=== PATIENT | male | born 1935 | race Caucasian/White ===

== ENCOUNTER 2018-08-25 14:04 | Inpatient (IN) ==
--- NOTE | 2018-08-25 17:09 | ED ---
HPI General Chief complaint: Medical Clearance Stated complaint: Left Hand Complaint Time Seen by Provider: 08/25/18 16:40 History of Present Illness HPI narrative: This is a 83-year-old male who presents today to be seen by the hand surgeon personnel adviser. Patient was seen on 08/20/18 after being bitten by a cat. He was started on antibiotics. He is been seen 3 times since then. He was told to follow-up with the hand surgeon however has been unable to get into be seen. Apparently his primary care physician called Dr. manzano who is on hand call. He instructed him to be sent to the ER to be seen by Dr. manzano. The patient denies any fevers, chills. He reports pain and redness and swelling to the distal left index finger. He has been taking his Augmentin however reports that it is still draining purulent fluid. There are no other complaints at the time of my examination. Related Data Home Medications Medication Instructions Recorded Confirmed atorvastatin 20 mg PO HS 08/20/18 08/25/18 dutasteride [Avodart] 0.5 mg PO DAILY 08/20/18 08/25/18 hydroxychloroquine 200 mg PO DAILY 08/20/18 08/25/18 methylprednisolone 4 mg PO DAILY 08/20/18 08/25/18 Previous Rx's Medication Instructions Recorded amoxicillin-pot clavulanate 1 tab PO BID 10 Days #20 tab 08/20/18 [Augmentin] Allergies Allergy/AdvReac Type Severity Reaction Status Date / Time No Known Allergies Allergy Verified 08/23/18 10:28 Review of Systems ROS: all other systems reviewed are negative Constitutional Denies chills and Denies fever(s) Cardiovascular Reports system reviewed and no additional complaints, except as docu Respiratory Reports system reviewed and no additional complaints, except as docu Gastrointestinal Reports system reviewed and no additional complaints, except as docu Genitourinary Reports system reviewed and no additional complaints, except as docu Musculoskeletal Reports limited range of motion (Of left index finger secondary to pain and swelling.) Integumentary/Breasts Reports erythema (Left distal index finger) and Reports skin swelling (Left index finger) Neurologic Reports system reviewed and no additional complaints, except as docu [facility] Social History Social History Substance History: No History of Abuse Second Hand Smoke Exposure: No Smoking Status: Never smoker Tobacco Type: Cigarettes How Often Do You Have a Drink Containing Alcohol: Never Recent Travel in [place] within the Last 8 Weeks: No Recent Out of Country Travel within the Last 8 Weeks: No Immunization History Tetanus Immunization: Unsure Tetanus Immunization Year if Known: 2011 Exam Narrative Exam Narrative: GENERAL: Well-nourished, well-developed patient, in no acute respiratory distress. SKIN: Focused skin assessment warm/dry. HEAD: Normocephali/atraumatic c. EYES: No scleral icterus. No injection or drainage. NECK: Supple, trachea midline. No JVD or lymphadenopathy. CARDIOVASCULAR: Regular rate and rhythm without murmurs, gallops, or rubs. MUSCULOSKELETAL: On examination the patient's left index finger, there is significant swelling to the left finger. There is circumferential redness. There is drainage noted at the dorsum of the finger just before the nail. There is limited range secondary to the swelling. Patient reports there has been decreased redness and swelling over the proximal finger since discharge. NEUROLOGICAL: Awake and alert. Cranial nerves II through XII intact. Motor and sensory grossly within normal limits. Five out of 5 muscle strength in all muscle groups. Normal speech. Course Initial Documented Vital Signs Temperature 98.1 F 08/25/18 14:10 Pulse Rate 91 H 08/25/18 14:10 Respiratory Rate 20 08/25/18 14:10 Blood Pressure 174/72 H 08/25/18 14:10 Pulse Oximetry 98 08/25/18 14:10 Last Documented Vital Signs Temperature 98.1 F 08/25/18 14:10 Pulse Rate 81 08/25/18 16:47 Respiratory Rate 14 08/25/18 16:47 Blood Pressure 168/76 H 08/25/18 16:47 Pulse Oximetry 95 08/25/18 16:47 Medical Decision Making [facility] Narrative Medical decision making narrative: 83-year-old male status post cat bite on , presents here with redness and drainage from his left index finger. The patient's been on Augmentin since the cat bite. He is been seen 3 times since his initial visit. His primary care physician spoke with the hand surgeon on-call who recommended he come here today to be evaluated. Dr. manzano has evaluated the patient will be taken him to the emergency department to wash out his DIP joint. Patient was started on Unasyn. He is n.p.o. [facility] Case was discussed with Dr. Sean Renteria who is been gracious enough to come and see the patient and written admission orders. Medical Screen Exam Complete: Yes Emergency Medical Condition: Yes Differential Diagnosis Differential Diagnosis: Tenosynovitis versus cellulitis versus intra-articular infection Lab Data Result diagrams: 08/25/18 17:15 08/25/18 17:15 Lab Results 08/25/18 08/25/18 Range/Units 17:15 17:15 WBC 5.3 (4.0-11.0) th/mm3 RBC 4.13 L (4.50-5.90) mil/mm3 Hgb 13.1 (13.0-17.0) gm/dL Hct 38.4 L (39.0-51.0) % MCV 92.9 (80.0-100.0) fL MCH 31.8 (27.0-34.0) pg MCHC 34.2 (32.0-36.0) % RDW 13.3 (11.6-17.2) % Plt Count 200 (150-450) th/mm3 MPV 7.3 (7.0-11.0) fL Prelim Diff (Auto) [employer]st Neut % (Auto) 71.7 H (16.0-70.0) % Lymph % (Auto) 21.2 (9.0-44.0) % Maury % (Auto) 5.2 (0.0-8.0) % Eos % (Auto) 1.9 (0.0-4.0) % Baso % (Auto) 0.0 (0.0-2.0) % Neut # (Auto) 3.8 (1.8-7.7) th/mm3 Lymph # (Auto) 1.1 (1.0-4.8) th/mm3 Maury # (Auto) 0.3 (0.0-0.9) th/mm3 Eos # (Auto) 0.1 (0.0-0.4) th/mm3 Baso # (Auto) 0.0 (0.0-0.2) th/mm3 WBC Differential . Differential Comment Auto diff final Sodium 140 (136-145) meq/L Potassium 4.4 (3.5-5.1) meq/L Chloride 110 H (98-107) meq/L Carbon Dioxide 21.5 (21.0-32.0) meq/L Anion Gap 9 (5-15) meq/L BUN 23 H (7-18) mg/dL Creatinine 0.75 (0.60-1.30) mg/dL Estimated GFR Greater than 89 (>89) mL/min Random Glucose 100 (74-106) mg/dL Calcium 8.9 (8.5-10.1) mg/dL Discharge Plan Discharge Disposition Patient Disposition: ED Admit(ED Internal Use Only) Discharge Order Discharge Orders: ED Use Only Admit Order (Routine); Ordered 08/25/18 Ordered By: Harpreet Salgado Discharge Details Diagnosis: Infected puncture wound of left index finger Physicians Team ED Provider: Harpreet Salgado Primary Care Provider: Bill Higginbotham Attending Provider: Sean Renteria Discharge Interventions Interventions: Vital Signs Last Done: 08/25/18 16:47 Status ED Status: Admitted Patient
[2018-08-25 17:23] LABS: Eos # (Auto) 0.1 th/mm3 (0.0-0.4); Eos % (Auto) 1.9 % (0.0-4.0); Hematocrit 38.4 % (39.0-51.0); Hemoglobin 13.1 gm/dL (13.0-17.0); Lymph # (Auto) 1.1 th/mm3 (1.0-4.8); Lymph % (Auto) 21.2 % (9.0-44.0); Mean Corpuscular HGB Conc 34.2 % (32.0-36.0); Mean Corpuscular Hemoglobin 31.8 pg (27.0-34.0); Mean Corpuscular Volume 92.9 fL (80.0-100.0); Mean Platelet Volume 7.3 fL (7.0-11.0); Mono # (Auto) 0.3 th/mm3 (0.0-0.9); Mono % (Auto) 5.2 % (0.0-8.0); Neut # (Auto) 3.8 th/mm3 (1.8-7.7); Neut % (Auto) 71.7 % (16.0-70.0); Platelet Count 200 th/mm3 (150-450); Red Blood Count 4.13 mil/mm3 (4.50-5.90); Red Cell Distribution Width 13.3 % (11.6-17.2); White Blood Count 5.3 th/mm3 (4.0-11.0)
[2018-08-25] MEDS ORDERED: Acetaminophen 325 MG Tablet PO PRN (17:28)
[2018-08-25] MEDS ORDERED: HYDROmorphone PF Inj 0.5 MG/0.5 ML Syringe IV.PUSH PRN (17:34)
[2018-08-25 17:41] LABS: Anion Gap 9 meq/L (5-15); Blood Urea Nitrogen 23 mg/dL (7-18); Calcium 8.9 mg/dL (8.5-10.1); Carbon Dioxide 21.5 meq/L (21.0-32.0); Chloride 110 meq/L (98-107); Glomerular Filtration Rate Greater Than 89 mL/min (>89); Glucose,Random 100 mg/dL (74-106); Potassium 4.4 meq/L (3.5-5.1); Sodium 140 meq/L (136-145)
[2018-08-25] MEDS: KCL 20 mEq/NACL 0.45% Inj 1,000 ML IV.CONT SCH (18:28)
[2018-08-25] MEDS: Ampicillin/Sulbactam Inj 3 GM in Sodium Chloride 0.9% Inj 100 ML IV.SIG SCH (18:28)
--- NOTE | 2018-08-25 18:31 | MB ---
cc: Micheal Devlin MD DATE: 08/25/2018 REASON FOR CONSULTATION: Left index finger infection. HISTORY OF PRESENT ILLNESS: The patient is an 83-year-old right-hand dominant male, presenting to the ED with complaints of cat bite to the left index finger which happened on 08/20/2018. The patient was seen in the ER multiple times and was started on p.o. antibiotics. He has been compliant with antibiotics. The patient is presenting with worsening symptoms of pain, swelling, redness involving the left index finger. He also complains of associated deformity of the index finger. The patient also complains of drainage from the region. He denies any fever or chills. PAST MEDICAL AND SURGICAL HISTORY: Reviewed. PHYSICAL EXAMINATION: The patient is alert, oriented x3. Examination of the left index finger reveals a flexion deformity at the distal interphalangeal joint with 2 bite wounds, one over the dorsal aspect of the distal interphalangeal joint and on the volar pulp region. There is surrounding swelling, erythema, and drainage. There is drooping of the distal interphalangeal joint about 30 degrees. Tenderness noted over the region. He has intact distal circulation. He has intact distal sensation. There appears to be a fluctuant mass just underneath the eponychial skin fold as well. Terminal degrees of flexion of the index finger DIP joint is limited and painful. He has a flexion deformity of about 30 degrees, and no active extension at the DIP joint beyond that. LABORATORY DATA: Laboratory work was reviewed. He has a white count of 5.3 and neutrophil shift of 71%. X-rays of the left index finger shows soft tissue swelling. Small radiopaque foreign body noted along the volar surface of the distal phalanx. No evidence of fracture noted. ASSESSMENT: This is an 83-year-old male with cat bite to the left index finger distal interphalangeal joint region with septic arthritis. PLAN: Will be to take the patient emergently for incision and drainage, arthrotomy, and wash. The patient will be admitted for IV antibiotics. The patient has been explained the risks and benefits of the procedure. He has been consented for the same. Location of the foreign body is opposite to the bite wound in the pulp. appears like a metal sliver, unlikely broken tooth. MD Tiffany Michele , 05:36 PM , 05:44 PM [facility]ENTER[facility]
--- NOTE | 2018-08-25 18:40 | XR ---
EXAM DATE: 08/25/2018 6:26 PM EST AGE/SEX: 83 years / Male INDICATIONS: Infection in second digit left hand. Cough. CLINICAL DATA: This is the patient's initial encounter. Patient reports that signs and symptoms have been present for 2 weeks and indicates a pain score of 4/10. MEDICAL/SURGICAL HISTORY: None. None. COMPARISON: No prior exams available for comparison. FINDINGS: A single AP view of the chest demonstrates the lungs to be symmetrically aerated without evidence of mass, infiltrate or effusion. Minimal basilar atelectasis. The cardiomediastinal contours are unremar kable. Osseous structures are intact. CONCLUSION: Minimal basilar atelectasis. No infiltrate or effusion. Electronically signed by: Grady Goldsmith MD Board Certified Radiologist 08/25/2018 6:39 PM EST
--- NOTE | 2018-08-25 18:41 | XR ---
EXAM DATE: 08/25/2018 6:28 PM EST AGE/SEX: 83 years / Male INDICATIONS: Infection left hand second digit. Complains of pain and swelling. CLINICAL DATA: This is the patient's subsequent encounter. Patient reports that signs and symptoms h ave been present for 1 week and indicates a pain score of 5/10. MEDICAL/SURGICAL HISTORY: None. None. COMPARISON: [facility], FINGER LEFT 2ND DIGIT MIN 2V, 08/20/2018. . FINDINGS: There is soft tissue swelling of the distal second finger. A linear radiopaque foreign body or calcif ication is seen within the soft tissues on the volar aspect of the distal phalanx. No bony destructiv e change. No acute fracture. CONCLUSION: Small linear radiopaque foreign body or calcification the soft tissues adjacent to the distal phalanx measuring about 3 mm in diameter. There is soft tissue swelling of the index finger. No bony destruc tive change. Electronically signed by: Grady Goldsmith MD Board Certified Radiologist 08/25/2018 6:40 PM EST
[2018-08-25] MEDS ORDERED: Neomycin/Polymyxin G.U. Irrigant 1 ML Ampul ONE (21:00)
[2018-08-25] MEDS ORDERED: Metoprolol Tartrate 25 MG Tablet PO SCH (21:46)
[2018-08-25] MEDS ORDERED: Chlorhexidine Gluconate 2% 1 Pack (2 Cloths) TOPICAL ONE (21:46)
[2018-08-25] MEDS ORDERED: Sodium Chlor 0.9% Inj 500 ML IV.SIG SCH (22:00)
[2018-08-25] MEDS ORDERED: ceFAZolin 2 GM Premix Inj 2 GM/50 ML PIGGYBACK IV.SIG ONE (22:24)
[2018-08-25] MEDS ORDERED: Neomycin/Polymyxin G.U. Irrigant 1 ML Ampul IRRIGATION ONE (22:25)
[2018-08-25] MEDS ORDERED: Bupivacaine PF 0.5% Inj 10 ML Vial ONE (22:43)
[2018-08-25] MEDS ORDERED: Lidocaine PF 2% Inj 10 ML Ampul ONE (22:43)
--- NOTE | 2018-08-25 23:06 | P.OP ---
- Preoperative Diagnosis (1) Cat bite of finger Comment: left index finger (2) Septic arthritis of interphalangeal joint of finger of left hand Comment: distal interphalangeal joint left index finger - Postoperative Diagnosis (1) Cat bite of finger Comment: left index finger (2) Septic arthritis of interphalangeal joint of finger of left hand Comment: distal interphalangeal joint left index finger Date of procedure: 08/25/18 Procedure: incision and drainage left index finger arthrotomy, wash, debridement distal interphalangeal joint left index finger Anesthesia: other (general, LMA) Surgeon: Micheal Devlin MD Estimated blood loss (mL): 2 Tourniquet time (min): 29 Pathology: other (swab for c/s 1. subcutaneous 2. DIP joint,. synvovial tissue for pathology)
[2018-08-25] MEDS ORDERED: *HYDROmorphone PF Inj 1 MG/ML Ampul PERIprocedural Use ONLY ONE (23:07)
[2018-08-25] MEDS ORDERED: fentaNYL Citrate Inj 100 MCG/2 ML Ampul ONE (23:12)
[2018-08-26] MEDS: Ampicillin/Sulbactam Inj 3 GM in Sodium Chloride 0.9% Inj 100 ML IV.SIG SCH ×5 (00:15→23:36)
--- NOTE | 2018-08-26 00:27 | MP ---
cc: Micheal Devlin MD DATE OF OPERATION: 08/25/2018 PREOPERATIVE DIAGNOSES: Cat bite with infection, left index finger, and septic arthritis, distal interphalangeal joint, left index finger. POSTOPERATIVE DIAGNOSES: Cat bite with infection, left index finger, and septic arthritis, distal interphalangeal joint, left index finger. PROCEDURE PERFORMED: Incision and drainage, left index finger abscess, and arthrotomy, wash, debridement, distal interphalangeal joint, left index finger. SURGEON: Micheal Devlin MD ANESTHESIA: General. ESTIMATED BLOOD LOSS: 2 mL TOURNIQUET TIME: 29 minutes at 250 mmHg. SPECIMEN: Swabs were sent for culture and sensitivity from the subcutaneous region and distal interphalangeal joint region, and synovial tissue was sent for pathology. DISPOSITION: To PACU stable. INDICATIONS: The patient is an 83-year-old male who presented with complaint of cat bite to the left index finger about 4-5 days ago. The patient had multiple ER visits, and he presented today with worsening symptoms involving the left index finger. On examination, he had drooping at the DIP joint with purulent drainage from the dorsal aspect of the DIP joint. Another puncture wound was noted in the pulp. The patient had no active extension of the DIP joint. He had tenderness over the region. X-rays showed a foreign body at a different location in the polyp, likely a metal splinter. The patient was consented for incision and drainage and arthrotomy of distal interphalangeal joint and left index finger repair. The patient was explained the risks and benefits of the procedure. PROCEDURE IN DETAIL: The patient was brought to the operating room, and under general anesthesia, the left upper extremity was sterilely prepped and draped. Limb was elevated and tourniquet was inflated to 250 mmHg. Incision site was marked in an inverted Y fashion over the dorsal aspect of the DIP joint. The incision was made over the proposed incision site. Skin flaps are elevated. There was evidence of necrotic tissue over the dorsal aspect of the DIP joint and underneath the eponychial skinfold. On further exploration, there was almost a loss of about 75% of the extensor tendon along the radial aspect, but 25% of the tendon was intact along the ulnar aspect. The joint was exposed with purulence in the region. There was also loss of cartilage from the surface of the head of the middle phalanx and base of the distal phalanx. Specimen was sent from the subcutaneous region and from the DIP joint for culture and sensitivity. Excisional debridement of the infected synovium was carried out, and specimen sent for pathology. The wound along the pulp was explored, which was on the radial aspect. This was connected to the distal interphalangeal joint, and there was also evidence of involvement of the flexor tendon sheath in that region which was debrided and drained. Thorough wash was given using normal saline mixed with hydrogen peroxide and then normal saline mixed with irrigant. About 1 L of solution was used. Packing of the DIP joint and the pulp space was carried out with 1/4-inch iodoform packing material. Tourniquet was deflated at 29 minutes. The patient had good distal circulation after release of tourniquet. Skin flaps were then approximated loosely using 5-0 nylon in horizontal mattress interrupted fashion. Bulky hand dressing was applied. About 3 mL of local anesthesia was given as a digital block. Bulky hand dressing and Sof-Rol and José was applied. The patient had good distal circulation at the end of the procedure. He was recovered and sent to recovery room in stable condition. The plan will be to continue with IV antibiotics and followup cultures. The patient will need long-term IV antibiotics because of the septic arthritis. He would benefit from an infectious disease consult. Micheal Devlin MD SE/nidia , 11:11 PM , 11:20 PM
[2018-08-26 05:09] LABS: Anion Gap 8 meq/L (5-15); Baso % (Auto) 0.2 % (0.0-2.0); Blood Urea Nitrogen 17 mg/dL (7-18); Calcium 8.5 mg/dL (8.5-10.1); Carbon Dioxide 24.2 meq/L (21.0-32.0); Chloride 107 meq/L (98-107); Eos % (Auto) 0.2 % (0.0-4.0); Glomerular Filtration Rate Greater Than 89 mL/min (>89); Glucose,Random 130 mg/dL (74-106); Hematocrit 38.7 % (39.0-51.0); Hemoglobin 13.3 gm/dL (13.0-17.0); Lymph # (Auto) 0.6 th/mm3 (1.0-4.8); Mean Corpuscular HGB Conc 34.5 % (32.0-36.0); Mean Corpuscular Hemoglobin 31.5 pg (27.0-34.0); Mean Corpuscular Volume 91.4 fL (80.0-100.0); Mean Platelet Volume 7.7 fL (7.0-11.0); Mono # (Auto) 0.1 th/mm3 (0.0-0.9); Mono % (Auto) 2.1 % (0.0-8.0); Neut # (Auto) 4.6 th/mm3 (1.8-7.7); Neut % (Auto) 85.5 % (16.0-70.0); Platelet Count 203 th/mm3 (150-450); Red Blood Count 4.23 mil/mm3 (4.50-5.90); Red Cell Distribution Width 12.9 % (11.6-17.2); Sodium 139 meq/L (136-145); White Blood Count 5.4 th/mm3 (4.0-11.0)
[2018-08-26] MEDS: KCL 20 mEq/NACL 0.45% Inj 1,000 ML IV.CONT SCH ×2 (06:43→19:15)
[2018-08-26] MEDS: Finasteride 5 MG Tablet PO SCH (09:29)
[2018-08-26] MEDS: Hydroxychloroquine 200 MG Tablet PO SCH (09:29)
--- NOTE | 2018-08-26 15:14 | P.HPIM ---
History of Present Illness Primary Care Physician: Bill Higginbotham History of Present Illness: This is a 83-year-old male who presents today to be seen by the hand surgeon director of industrial relations. Patient was seen on 08/20/18 after being bitten by a cat. He was started on antibiotics. He is been seen 3 times since then. He was told to follow-up with the hand surgeon however has been unable to get into be seen. Apparently his primary care physician called Dr. devlin who is on hand call. He instructed him to be sent to the ER to be seen by Dr. devlin. The patient denies any fevers, chills. He reports pain and redness and swelling to the distal left index finger. He has been taking his Augmentin however reports that it is still draining purulent fluid. Pt examined in the ER together with Dr. Devlin (08/25/18). Pt taken to the OR by Claus (08/25/18) for emergent incision and drainage left index finger arthrotomy, wash, debridement distal interphalangeal joint left index finger. Pt dx with septic arthritis of the DIP joint of left 2nd digit. Cultures sent to lab. PMH: - hyperlipidemia - BPH - RA - paroxysmal SVT - malignant melanoma, RLE PSH: - right ankle arthroscopy - cataract surgery - cholecystectomy FHX: noncontribuory SHX: - - current smoker, no etoh, no illicit drugs All: NKDA Diagnosis (1) Infected puncture wound of left index finger: (2) Cat bite of finger: (3) Septic arthritis of interphalangeal joint of finger of left hand: Inpatient Certification Inpatient Certification: I certify that the inpatient services were ordered in accordance with Medicare regulations governing the order. This includes certification that hospital inpatient services are reasonable and necessary and in the case of services not specified as inpatient-only under 42 CFR 419.22(n), that they are appropriately provided as inpatient services in accordance to with the 2-midnight benchmark under 43 CFR 412.3(e) Estimated Total Length of Stay (Days): 3 Plans for Post Hospital Care: Not yet determined Medications and Allergies Allergies Allergy/AdvReac Type Severity Reaction Status Date / Time No Known Allergies Allergy Verified 08/23/18 10:28 Home Medications Medication Instructions Recorded Confirmed Type atorvastatin 20 mg PO HS 08/20/18 08/25/18 History dutasteride [Avodart] 0.5 mg PO DAILY 08/20/18 08/25/18 History hydroxychloroquine 200 mg PO DAILY 08/20/18 08/25/18 History methylprednisolone 4 mg PO DAILY 08/20/18 08/25/18 History Active Medications: Active Medications Acetaminophen (Tylenol) 650 mg PO Q4H PRN PRN Reason: Temp > 100.4 Hydrocodone Bitart/Acetaminophen ([place] 5/325) 1 tab PO Q4H PRN PRN Reason: PAIN SCALE 1 TO 10 Atorvastatin Calcium (Lipitor) 20 mg PO HS [facility] Last Admin: 08/25/18 21:47 Dose: Not Given Finasteride (Proscar) 5 mg PO DAILY [facility] Last Admin: 08/26/18 09:29 Dose: 5 mg Hydromorphone HCl (Dilaudid Pf Inj) 0.5 mg IV.PUSH Q4H PRN PRN Reason: BREAKTHROUGH PAIN Hydroxychloroquine Sulfate (Plaquenil) 200 mg PO DAILY [facility] Last Admin: 08/26/18 09:29 Dose: Not Given Ampicillin Sodium/Sulbactam (Sodium 3 gm/ Sodium Chloride) 100 mls @ 200 mls/ hr IV.SIG Q6H [facility] Last Admin: 08/26/18 13:58 Dose: 100 mls/hr Potassium Chloride/Sodium Chloride (Potassium Chlor 20 Meq/Nacl 0.45% Inj) 1, 000 mls @ 84 mls/hr IV.CONT .[id number] [facility] Last Admin: 08/26/18 06:43 Dose: 84 mls/hr Lactated Ringer's (Lr 1000 Ml Inj) 1,000 mls @ 30 mls/hr IV.SIG .Q24H [facility] Stop: 08/26/18 21:59 Metoprolol Tartrate (Lopressor) 25 mg PO [employer] MANAGER [facility] Stop: 08/26/18 21:45 Miscellaneous Information ([facility] [place] [facility] Information) 1 each OTHER UNSCH PRN PRN Reason: SEE LABEL COMMENTS Stop: 08/26/18 22:59 Ondansetron HCl (Zofran Inj) 4 mg IV.PUSH Q6H PRN PRN Reason: NAUSEA OR VOMITING Sodium Chloride (Ns Flush) 2 ml IV.FLUSH BID [facility] Last Admin: 08/26/18 09:27 Dose: Not Given Sodium Chloride (Ns Flush) 2 ml IV.FLUSH PRN PRN PRN Reason: FLUSH AFTER USING IV ACCESS Physical Exam Vital signs: Last Vital Signs Temp 97.6 F 08/26/18 12:00 Pulse 64 08/26/18 12:00 Resp 18 08/26/18 12:00 BP 106/56 L 08/26/18 12:00 Pulse Ox 97 08/26/18 12:00 Results Labs CBC & Chem 7: 08/26/18 03:58 08/27/18 15:24 Caprini VTE Risk Assessment Caprini VTE Risk Assessment: Moderate/High Risk (score >= 2) Caprini Risk Assessment Model: Point Value = 1 Point Value = 2 Point Value = 3 Point Value = 5 Age 41-60 Minor surgery BMI > 25 kg/m2 Swollen legs Varicose veins or History of unexplained or recurrent spontaneous Oral contraceptives or hormone replacement Sepsis (< 1 month) Serious lung disease, including pneumonia (< 1 month) Abnormal pulmonary function Acute myocardial infarction Congestive heart failure (< 1 month) History of inflammatory bowel disease Medical patient at bed rest Age 61-74 Arthroscopic surgery Major open surgery (> 45 min) Laparoscopic surgery (> 45 min) Malignancy Confined to bed (> 72 hours) Immobilizing plaster cast Central venous access Age >= 75 History of VTE Family history of VTE Factor V Leiden Prothrombin [id number] Lupus anticoagulant Anticardiolipin antibodies Elevated serum homocysteine Heparin-induced thrombocytopenia Other congenital or acquired thrombophilia Stroke (< 1 month) Elective arthroplasty Hip, pelvis, or leg fracture Acute spinal cord injury (< 1 month) Prophylaxis Regimen: Total Risk Factor Score Risk Level Prophylaxis Regimen 0-1 Low Early ambulation 2 Moderate Order ONE of the following: *Sequential Compression Device (SCD) *Heparin 5000 units SQ BID 3-4 Higher Order ONE of the following medications: *Heparin 5000 units SQ TID *Enoxaparin/Lovenox 40 mg SQ daily (WT < 150 kg, CrCl > 30 mL/min) *Enoxaparin/Lovenox 30 mg SQ daily (WT < 150 kg, CrCl > 10-29 mL/min) *Enoxaparin/Lovenox 30 mg SQ BID (WT < 150 kg, CrCl > 30 mL/min) AND/OR *Sequential Compression Device (SCD) 5 or more Highest Order ONE of the following medications: *Heparin 5000 units SQ TID (Preferred with Epidurals) *Enoxaparin/Lovenox 40 mg SQ daily (WT < 150 kg, CrCl > 30 mL/min) *Enoxaparin/Lovenox 30 mg SQ daily (WT < 150 kg, CrCl > 10-29 mL/min) *Enoxaparin/Lovenox 30 mg SQ BID (WT < 150 kg, CrCl > 30 mL/min) AND *Sequential Compression Device (SCD) Assessment and Plan Assessment (1) Infected puncture wound of left index finger: Code(s): S61.231A - Puncture wound without foreign body of left index finger without damage to nail, initial encounter; L08.9 - Local infection of the skin and subcutaneous tissue, unspecified Status: Acute (2) Cat bite of finger: Code(s): S61.259A - Open bite of unspecified finger without damage to nail, initial encounter; W55.01XA - Bitten by cat, initial encounter Status: Acute (3) Septic arthritis of interphalangeal joint of finger of left hand: Code(s): M00.9 - Pyogenic arthritis, unspecified Status: Acute Plan This is a 83-year-old male who presents today to be seen by the hand surgeon director of industrial relations. Patient was seen on 08/20/18 after being bitten by a cat. He was started on antibiotics. He is been seen 3 times since then. He was told to follow-up with the hand surgeon however has been unable to get into be seen. Apparently his primary care physician called Dr. devlin who is on hand call. He instructed him to be sent to the ER to be seen by Dr. devlin. The patient denies any fevers, chills. He reports pain and redness and swelling to the distal left index finger. He has been taking his Augmentin however reports that it is still draining purulent fluid. Pt examined in the ER together with Dr. Devlin (08/25/18). Pt taken to the OR by Claus (08/25/18) for emergent incision and drainage left index finger arthrotomy, wash, debridement distal interphalangeal joint left index finger. Pt dx with septic arthritis of the DIP joint of left 2nd digit. Cultures sent to lab. 1) Septic Arthritis DIP joint of left 2nd digit - intraoperative cultures --> pending - Unasyn (08/25 - present) - norco/dilaudid prn pain - supportive care - DVT prophylaxis 2) BPH - continue advodart 3) RA - continue hydroxychloroquine 4) hyperlipidemia - lipitor H&P: Quality VTE Deep Vein Thrombosis/Pulmonary Embolism Present on Admission: No _ (1) Infected puncture wound of left index finger Qualifiers: Encounter type: subsequent encounter Qualified Code(s): S61.231D - Puncture wound without foreign body of left index finger without damage to nail, subsequent encounter; L08.9 - Local infection of the skin and subcutaneous tissue, unspecified
--- NOTE | 2018-08-26 16:44 | ECG ---
Date Performed: 08/25/2018 Time Performed: 17:53:16 PTAGE: 83 years EKG: Sinus rhythm WITH FREQUENT VENTRICULAR PREMATURE COMPLEXES MARKED LEFT AXIS DEVIATION ABNORMAL ECG Compared to PREVIOUS TRACING PVC's are new. PREVIOUS TRACIN08/31/2002 19.36 DOCTOR: Rubio Gonzalez Interpretating Date/Time 08/26/2018 16:43:18
[2018-08-27] MEDS: KCL 20 mEq/NACL 0.45% Inj 1,000 ML IV.CONT SCH (05:05)
[2018-08-27] MEDS: Ampicillin/Sulbactam Inj 3 GM in Sodium Chloride 0.9% Inj 100 ML IV.SIG SCH ×3 (05:12→18:03)
[2018-08-27] MEDS: Finasteride 5 MG Tablet PO SCH (08:47)
[2018-08-27] MEDS: Hydroxychloroquine 200 MG Tablet PO SCH (08:49)
[2018-08-27 16:43] LABS: Carbon Dioxide 27.5 meq/L (21.0-32.0); Potassium 3.6 meq/L (3.5-5.1)
--- NOTE | 2018-08-27 17:40 | P.PNIM ---
Subjective Interval history: No new complaints. Physical Exam Vital signs: Last Vital Signs Temp 97.6 F 08/27/18 12:00 Pulse 62 08/27/18 12:00 Resp 17 08/27/18 12:00 BP 114/54 L 08/27/18 12:00 Pulse Ox 97 08/27/18 12:00 Narrative: GENERAL: This is a well-nourished, well-developed patient, in no apparent distress. CARDIOVASCULAR: Regular rate and rhythm without murmurs, gallops, or rubs. RESPIRATORY: Clear to auscultation. Breath sounds equal bilaterally. No wheezes , rales, or rhonchi. GASTROINTESTINAL: Abdomen soft, non-tender, nondistended. Normal active bowel sounds MUSCULOSKELETAL: left hand bandaged NEURO: Alert & Oriented x4 to person, place, time, situation. Moves all ext x4 Results Labs CBC & Chem 7: 08/26/18 03:58 08/27/18 15:24 Assessment and Plan Assessment (1) Infected puncture wound of left index finger: Code(s): S61.231A - Puncture wound without foreign body of left index finger without damage to nail, initial encounter; L08.9 - Local infection of the skin and subcutaneous tissue, unspecified Status: Acute (2) Cat bite of finger: Code(s): S61.259A - Open bite of unspecified finger without damage to nail, initial encounter; W55.01XA - Bitten by cat, initial encounter Status: Acute (3) Septic arthritis of interphalangeal joint of finger of left hand: Code(s): M00.9 - Pyogenic arthritis, unspecified Status: Acute Plan This is a 83-year-old male who presents today to be seen by the hand surgeon monument erector. Patient was seen on 08/20/18 after being bitten by a cat. He was started on antibiotics. He is been seen 3 times since then. He was told to follow-up with the hand surgeon however has been unable to get into be seen. Apparently his primary care physician called Dr. devlin who is on hand call. He instructed him to be sent to the ER to be seen by Dr. dvelin. The patient denies any fevers, chills. He reports pain and redness and swelling to the distal left index finger. He has been taking his Augmentin however reports that it is still draining purulent fluid. Pt examined in the ER together with Dr. Devlin (08/25/18). Pt taken to the OR by Claus (08/25/18) for emergent incision and drainage left index finger arthrotomy, wash, debridement distal interphalangeal joint left index finger. Pt dx with septic arthritis of the DIP joint of left 2nd digit. Cultures sent to lab. 1) Septic Arthritis DIP joint of left 2nd digit - intraoperative cultures (08/25) --> gram positive cocci - await ID consult - Unasyn (08/25 - present) - norco/dilaudid prn pain - case d/w Surgeon, Dr. Devlin, (08/27/18). - supportive care - DVT prophylaxis 2) BPH - continue advodart 3) RA - continue hydroxychloroquine 4) hyperlipidemia - lipitor Progress Note: Quality VTE Deep Vein Thrombosis/Pulmonary Embolism Present on Admission: No _ (1) Infected puncture wound of left index finger Qualifiers: Encounter type: subsequent encounter Qualified Code(s): S61.231D - Puncture wound without foreign body of left index finger without damage to nail, subsequent encounter; L08.9 - Local infection of the skin and subcutaneous tissue, unspecified
[2018-08-28] MEDS: Ampicillin/Sulbactam Inj 3 GM in Sodium Chloride 0.9% Inj 100 ML IV.SIG SCH ×4 (00:11→17:28)
[2018-08-28 05:32] LABS: Baso % (Auto) 0.4 % (0.0-2.0); Eos # (Auto) 0.3 th/mm3 (0.0-0.4); Eos % (Auto) 5.1 % (0.0-4.0); Hematocrit 37.3 % (39.0-51.0); Hemoglobin 12.6 gm/dL (13.0-17.0); Lymph # (Auto) 2.1 th/mm3 (1.0-4.8); Mean Corpuscular HGB Conc 33.8 % (32.0-36.0); Mean Corpuscular Hemoglobin 31.3 pg (27.0-34.0); Mean Corpuscular Volume 92.7 fL (80.0-100.0); Mean Platelet Volume 7.5 fL (7.0-11.0); Mono # (Auto) 0.5 th/mm3 (0.0-0.9); Mono % (Auto) 9.1 % (0.0-8.0); Neut # (Auto) 2.3 th/mm3 (1.8-7.7); Neut % (Auto) 44.4 % (16.0-70.0); Platelet Count 220 th/mm3 (150-450); Red Blood Count 4.03 mil/mm3 (4.50-5.90); Red Cell Distribution Width 13.2 % (11.6-17.2); White Blood Count 5.1 th/mm3 (4.0-11.0)
[2018-08-28 06:07] LABS: Anion Gap 7 meq/L (5-15); Blood Urea Nitrogen 17 mg/dL (7-18); Calcium 8.4 mg/dL (8.5-10.1); Carbon Dioxide 25.3 meq/L (21.0-32.0); Chloride 111 meq/L (98-107); Glomerular Filtration Rate Greater Than 89 mL/min (>89); Glucose,Random 88 mg/dL (74-106); Sodium 143 meq/L (136-145)
--- NOTE | 2018-08-28 08:33 | P.PNIM ---
Subjective Interval history: Patient offers no new concerns/complaints Physical Exam Vital signs: Last Vital Signs Temp 97.7 F 08/28/18 00:00 Pulse 61 08/28/18 00:00 Resp 18 08/28/18 00:00 BP 143/65 H 08/28/18 00:00 Pulse Ox 97 08/28/18 00:00 Narrative: GENERAL: This is a well-nourished, well-developed patient, in no apparent distress. CARDIOVASCULAR: Regular rate and rhythm without murmurs, gallops, or rubs. RESPIRATORY: Clear to auscultation. Breath sounds equal bilaterally. No wheezes , rales, or rhonchi. GASTROINTESTINAL: Abdomen soft, non-tender, nondistended. Normal active bowel sounds MUSCULOSKELETAL: left hand bandaged dry and intact NEURO: Alert & Oriented x4 to person, place, time, situation. Moves all ext x4 Results Labs CBC & Chem 7: 08/28/18 04:10 08/28/18 04:10 Assessment and Plan Assessment (1) Infected puncture wound of left index finger: Code(s): S61.231A - Puncture wound without foreign body of left index finger without damage to nail, initial encounter; L08.9 - Local infection of the skin and subcutaneous tissue, unspecified Status: Acute (2) Cat bite of finger: Code(s): S61.259A - Open bite of unspecified finger without damage to nail, initial encounter; W55.01XA - Bitten by cat, initial encounter Status: Acute (3) Septic arthritis of interphalangeal joint of finger of left hand: Code(s): M00.9 - Pyogenic arthritis, unspecified Status: Acute Plan This is a 83-year-old male who presents today to be seen by the hand surgeon tooth cutter contact wheel. Patient was seen on 08/20/18 after being bitten by a cat. He was started on antibiotics. He is been seen 3 times since then. He was told to follow-up with the hand surgeon however has been unable to get into be seen. Apparently his primary care physician called Dr. devlin who is on hand call. He instructed him to be sent to the ER to be seen by Dr. devlin. The patient denies any fevers, chills. He reports pain and redness and swelling to the distal left index finger. He has been taking his Augmentin however reports that it is still draining purulent fluid. Pt examined in the ER together with Dr. Devlin (08/25/18). Pt taken to the OR by Claus (08/25/18) for emergent incision and drainage left index finger arthrotomy, wash, debridement distal interphalangeal joint left index finger. Pt dx with septic arthritis of the DIP joint of left 2nd digit. Cultures sent to lab. 1) Septic Arthritis DIP joint of left 2nd digit - intraoperative cultures from left DIP joint --> gram positive cocci - await ID consult - Unasyn (08/25 - present) - norco/dilaudid prn pain - Dr. Renteria discussed case with Hand Surgeon, Dr. Devlin, (08/27/18). - Dr. Devlin planns to change dressing 08/28 and give further recommendations - supportive care - DVT prophylaxis 2) BPH - continue advodart 3) RA - continue hydroxychloroquine 4) hyperlipidemia - lipitor Attending Attestation Patient examined. Assessment and plan formulated with Gretel Vargas PA-C. I agree with the above. cont unasyn. await surgical decision for ?further surgery. ID consulted for dc abx choice. Progress Note: Quality VTE Deep Vein Thrombosis/Pulmonary Embolism Present on Admission: No _ (1) Infected puncture wound of left index finger Qualifiers: Encounter type: subsequent encounter Qualified Code(s): S61.231D - Puncture wound without foreign body of left index finger without damage to nail, subsequent encounter; L08.9 - Local infection of the skin and subcutaneous tissue, unspecified
--- NOTE | 2018-08-28 09:20 | P.CONID ---
History of Present Illness Service: Infectious disease Consult date: 08/28/18 Requesting Physician: Micheal Devlin Reason for Consult: Evaluate Patient with Septic Joint after cat bite Primary Care Provider: Bill Higginbotham History of Present Illness: Patient seen and examined. Records reviewed. Patient is an 83-year-old male, lives alone at home with his cath, sustained a cat bite on his left index finger on August 19. He developed pain and swelling and went to the emergency room on August 20. He was given Augmentin. He went back to the emergency room August 21 because it was getting worse and he was discharged again. On August 23 he went back, and was told to complete his antibiotics. He returned to the hospital in August for worsening pain redness and swelling. Patient was seen by hand surgery, and was taken to surgery. He had evidence of infection going all the way to the DIP joint in the left index finger. He has not had any fever chills or sweats. He has not had any other complaint as far as respiratory, GI, or urinary complaints. Cultures currently is growing gram-positive cocci. He is currently on Unasyn. Infectious disease consultation has been requested to assist with evaluation and treatment. Review of Systems Constitutional: Denies chills, Denies fever(s), Denies night sweats Eyes: Denies discharge, Denies dry eyes Ears, Nose, Mouth, and Throat: Denies difficulty swallowing, Denies nasal discharge, Denies nasal obstruction, Denies sore throat Cardiovascular: Denies chest pain, Denies shortness of breath Respiratory: Denies chest congestion, Denies cough, Denies shortness of breath Gastrointestinal: Reports constipation, Denies abdominal pain, Denies nausea, Denies pain with swallowing, Denies vomiting Genitourinary: Denies difficulty urinating, Denies painful urination Musculoskeletal: Reports joint pain, Reports joint swelling Skin/Breast: Reports wounds Neurologic: Denies headache(s) PMFSH - History History Provided By: Patient - Medical History Medical History: Medical History (Last Reviewed 08/28/18 @ 09:14 by Benita Colindres MD) Patient denies medical problems - Surgical History Surgical History: Surgical History (Last Reviewed 08/28/18 @ 09:14 by Benita Colindres MD) No history of previous surgery - Tobacco History Second Hand Smoke Exposure: No Smoking Status: Never smoker Tobacco Type: Cigarettes - Alcohol History How Often Do You Have a Drink Containing Alcohol: Never - Substance Use History Substance History: No History of Abuse - Travel History Recent Travel in the [place] Within the Last 8 Weeks: No Recent Travel Out of the Country Within the Last 8 Weeks: No - Immunization History Tetanus Immunization: <5 Years Tetanus Immunization Year if Known: 2011 Hx Influenza Vaccine This Season: Yes Medications and Allergies Active Medications: Active Medications Acetaminophen (Tylenol) 650 mg PO Q4H PRN PRN Reason: Temp > 100.4 Hydrocodone Bitart/Acetaminophen ([place] 5/325) 1 tab PO Q4H PRN PRN Reason: PAIN SCALE 1 TO 10 Atorvastatin Calcium (Lipitor) 20 mg PO HS [facility] Last Admin: 08/27/18 21:33 Dose: 20 mg Enoxaparin Sodium (Lovenox Inj) 30 mg SQ DAILY [facility] Finasteride (Proscar) 5 mg PO DAILY [facility] Last Admin: 08/27/18 08:47 Dose: 5 mg Hydromorphone HCl (Dilaudid Pf Inj) 0.5 mg IV.PUSH Q4H PRN PRN Reason: BREAKTHROUGH PAIN Hydroxychloroquine Sulfate (Plaquenil) 200 mg PO DAILY [facility] Last Admin: 08/27/18 08:49 Dose: Not Given Ampicillin Sodium/Sulbactam (Sodium 3 gm/ Sodium Chloride) 100 mls @ 200 mls/ hr IV.SIG Q6H [facility] Last Admin: 08/28/18 05:06 Dose: 100 mls/hr Ondansetron HCl (Zofran Inj) 4 mg IV.PUSH Q6H PRN PRN Reason: NAUSEA OR VOMITING Sodium Chloride (Ns Flush) 2 ml IV.FLUSH BID [facility] Last Admin: 08/27/18 21:34 Dose: 2 ml Sodium Chloride (Ns Flush) 2 ml IV.FLUSH PRN PRN PRN Reason: FLUSH AFTER USING IV ACCESS Allergies Allergy/AdvReac Type Severity Reaction Status Date / Time No Known Allergies Allergy Verified 08/23/18 10:28 Home Medications Medication Instructions Recorded Confirmed Type atorvastatin 20 mg PO HS 08/20/18 08/25/18 History dutasteride [Avodart] 0.5 mg PO DAILY 08/20/18 08/25/18 History hydroxychloroquine 200 mg PO DAILY 08/20/18 08/25/18 History methylprednisolone 4 mg PO DAILY 08/20/18 08/25/18 History Exam Vital signs: Vital Signs 08/27/18 12:00 08/27/18 16:00 08/27/18 20:00 Temperature 97.6 F 97.6 F 97.7 F Pulse Rate 62 60 60 Respiratory Rate 17 18 18 Blood Pressure 114/54 L 132/65 135/61 Pulse Oximetry 97 98 97 08/28/18 00:00 Temperature 97.7 F Pulse Rate 61 Respiratory Rate 18 Blood Pressure 143/65 H Pulse Oximetry 97 Intake & Output 08/27/18 08/28/18 08/28/18 18:59 06:59 18:59 Intake Total 100 / 100 200 / 200 Output Total 250 / 250 Balance 100 / 100 -50 / -50 Weight 74.4 kg Intake: IV 100 / 100 200 / 200 Unasyn Inj 3 GM In NS Inj 100 100 / 100 200 / 200 ML @ 200 mls/hr IV.SIG Q6H [facility] Rx#:[id number] Output: Urine 250 / 250 Other: # Voids 1 Date of Last Bowel Movement 08/25/18 # Bowel Movements 1 Narrative: Physical examination GENERAL: Patient is a well-nourished, well-developed male, awake and alert, not in respiratory distress. SKIN: Cool and dry. No generalized rash. Has brownish pigmentation in his UE. HEAD: Atraumatic. Normocephalic. No temporal wasting, or tenderness. EYES: Gully conjunctiva. No petechia or hemorrhage. Pupils equal, round and reactive to light. Extraocular movements full and intact. No scleral icterus. No injection or drainage. EARS, NOSE AND THROAT: Nose without bleeding or purulent nasal discharge. No sinus tenderness. Mucous membranes pink and moist. No oral lesions noted. No exudate. No oral thrush. NECK: Trachea midline. Supple and not tender, no meningeal signs CARDIOVASCULAR: Regular rate and rhythm. No murmurs, rubs or gallops heard RESPIRATORY: Clear to auscultation. Breath sounds equal bilaterally. No rales , wheezing or rhonchi ABDOMEN: Soft, non-tender, nondistended. Bowel sounds present and normoactive. No guarding. No rebound. No organomegaly. EXTREMITIES: No clubbing, cyanosis, or edema. He has dry dressing in his LIF , with splint in place. No swelling noted in the hand, no redness or lymphangitis seen in proximal hand and the rest of his LUE NEUROLOGICAL: Awake and alert. Cranial nerves grossly intact. Motor grossly within normal limits. PSYCHIATRIC: Normal affect, calm and cooperative. LINE: No evidence of infection Results - Labs CBC & Chem 7: 08/28/18 04:10 08/28/18 04:10 Labs: Laboratory Results - last 24 hr 08/27/18 08/28/18 08/28/18 15:24 04:10 04:10 WBC 5.1 RBC 4.03 L Hgb 12.6 L Hct 37.3 L MCV 92.7 MCH 31.3 MCHC 33.8 RDW 13.2 Plt Count 220 MPV 7.5 Neut % (Auto) 44.4 Lymph % (Auto) 41.0 Br[place]ley % (Auto) 9.1 H Eos % (Auto) 5.1 H Baso % (Auto) 0.4 Neut # (Auto) 2.3 Lymph # (Auto) 2.1 [place] # (Auto) 0.5 Eos # (Auto) 0.3 Baso # (Auto) 0.0 WBC Differential . Differential Comment Auto diff final Sodium 144 143 Potassium 3.6 D 4.0 Chloride 110 H 111 H Carbon Dioxide 27.5 25.3 Anion Gap 7 7 BUN 20 H 17 Creatinine 0.89 0.80 Estimated GFR 82 L Greater than 89 Random Glucose 100 88 Calcium 8.0 L 8.4 L Assessment and Plan - Plan Impression LIF infection with septic DIP, from cat bite - C/S GPC - did not improve with Augmentin Recommendation Continue Unasyn Follow C/S Will d/w Dr Devlin Explained plan to the patient
[2018-08-28] MEDS ORDERED: Vancomycin Inj 1,000 MG in Sodium Chlor 0.9% Inj 250 ML IV.SIG ONE (09:30)
[2018-08-28] MEDS: Enoxaparin Inj 30 MG/0.3 ML Syringe SQ SCH (10:19)
[2018-08-28] MEDS: Finasteride 5 MG Tablet PO SCH (10:19)
[2018-08-28] MEDS: Hydroxychloroquine 200 MG Tablet PO SCH (10:19)
[2018-08-29] MEDS: Ampicillin/Sulbactam Inj 3 GM in Sodium Chloride 0.9% Inj 100 ML IV.SIG SCH ×2 (00:31→05:53)
[2018-08-29] MEDS: Enoxaparin Inj 30 MG/0.3 ML Syringe SQ SCH (08:48)
[2018-08-29] MEDS: Hydroxychloroquine 200 MG Tablet PO SCH (08:48)
[2018-08-29] MEDS: Finasteride 5 MG Tablet PO SCH (08:48)
--- NOTE | 2018-08-29 09:36 | P.PNIM ---
Subjective Interval history: no new concerns/complaints Physical Exam Vital signs: Last Vital Signs Temp 97.6 F 08/29/18 08:00 Pulse 62 08/29/18 08:00 Resp 17 08/29/18 08:00 BP 140/58 L 08/29/18 08:00 Pulse Ox 95 08/29/18 08:00 Narrative: GENERAL: This is a well-nourished, well-developed patient, in no apparent distress. CARDIOVASCULAR: Regular rate and rhythm without murmurs, gallops, or rubs. RESPIRATORY: Clear to auscultation. Breath sounds equal bilaterally. No wheezes , rales, or rhonchi. GASTROINTESTINAL: Abdomen soft, non-tender, nondistended. Normal active bowel sounds MUSCULOSKELETAL: left hand bandaged dry and intact NEURO: Alert & Oriented x4 to person, place, time, situation. Moves all ext x4 Results Labs CBC & Chem 7: 08/28/18 04:10 08/28/18 04:10 Assessment and Plan Assessment (1) Infected puncture wound of left index finger: Code(s): S61.231A - Puncture wound without foreign body of left index finger without damage to nail, initial encounter; L08.9 - Local infection of the skin and subcutaneous tissue, unspecified Status: Acute (2) Cat bite of finger: Code(s): S61.259A - Open bite of unspecified finger without damage to nail, initial encounter; W55.01XA - Bitten by cat, initial encounter Status: Acute (3) Septic arthritis of interphalangeal joint of finger of left hand: Code(s): M00.9 - Pyogenic arthritis, unspecified Status: Acute Plan This is a 83-year-old male who presents today to be seen by the hand surgeon coagulation operator. Patient was seen on 08/20/18 after being bitten by a cat. He was started on antibiotics. He is been seen 3 times since then. He was told to follow-up with the hand surgeon however has been unable to get into be seen. Apparently his primary care physician called Dr. Devlin who is on hand call. He instructed him to be sent to the ER to be seen by Dr. devlin. The patient denies any fevers, chills. He reports pain and redness and swelling to the distal left index finger. He has been taking his Augmentin however reports that it is still draining purulent fluid. Pt examined in the ER together with Dr. Devlin (08/25/18). Pt taken to the OR by Claus (08/25/18) for emergent incision and drainage left index finger arthrotomy, wash, debridement distal interphalangeal joint left index finger. Pt dx with septic arthritis of the DIP joint of left 2nd digit. Cultures sent to lab. 1) Septic Arthritis DIP joint of left 2nd digit - intraoperative cultures from left DIP joint --> gram positive cocci - ID also following, await final abx recommendations - Unasyn (08/25 - present) - norco/dilaudid prn pain - Dr. Renteria discussed case with Hand Surgeon, Dr. Dvelin, (08/27/18). - Dr. Devlin planns to change dressing 08/28 and give further recommendations - supportive care - DVT prophylaxis 2) BPH - continue advodart 3) RA - continue hydroxychloroquine 4) hyperlipidemia - lipitor DVT prophylaxis with Lovenox Progress Note: Quality VTE Deep Vein Thrombosis/Pulmonary Embolism Present on Admission: No _ (1) Infected puncture wound of left index finger Qualifiers: Encounter type: subsequent encounter Qualified Code(s): S61.231D - Puncture wound without foreign body of left index finger without damage to nail, subsequent encounter; L08.9 - Local infection of the skin and subcutaneous tissue, unspecified
[2018-08-29] MEDS ORDERED: Vancomycin Consult Pharmacy OTHER PRN (10:19)
--- NOTE | 2018-08-29 11:08 | P.PNID ---
Subjective Remarks: Patient is an 83-year-old male, lives alone at home with his cath, sustained a cat bite on his left index finger on August 19. He developed pain and swelling and went to the emergency room on August 20. He was given Augmentin. He went back to the emergency room August 21 because it was getting worse and he was discharged again. On August 23 he went back, and was told to complete his antibiotics. He returned to the hospital in August for worsening pain redness and swelling. Patient was seen by hand surgery, and was taken to surgery. He had evidence of infection going all the way to the DIP joint in the left index finger. He has not had any fever chills or sweats. He has not had any other complaint as far as respiratory, GI, or urinary complaints. Cultures currently is growing gram-positive cocci. He is currently on Unasyn. Infectious disease consultation has been requested to assist with evaluation and treatment. Notes reviewed Temps ok Pain same C/S from surgery (2 specimens) - rare growth Coag Neg Staph Antibiotics: Unasyn Vanco x 1 Past Medical History: Unremarkable Allergies/Adverse Reactions: Allergies No Known Allergies Allergy (Verified 08/23/18 10:28) Objective Vital Signs 08/28/18 12:00 08/28/18 16:00 08/28/18 20:00 Temperature 97.4 F L 98.1 F 97.3 F L Pulse Rate 62 66 64 Respiratory Rate 16 15 16 Blood Pressure 138/62 143/68 H 117/59 L Pulse Oximetry 98 97 97 08/28/18 23:45 08/29/18 08:00 Temperature 97.2 F L 97.6 F Pulse Rate 68 62 Respiratory Rate 17 17 Blood Pressure 130/60 140/58 L Pulse Oximetry 99 95 Intake & Output 08/28/18 08/29/18 08/29/18 18:59 06:59 18:59 Intake Total 100 / 100 1150 / 1150 100 / 100 Balance 100 / 100 1150 / 1150 100 / 100 Weight 74.4 kg Intake: IV 100 / 100 450 / 450 100 / 100 Unasyn Inj 3 GM In NS Inj 100 100 / 100 200 / 200 100 / 100 ML @ 200 mls/hr IV.SIG Q6H ASHLEY Rx#:[id number] Oral 700 / 700 Other: # Voids 2 08/25/18 20:22 Wound - Finger Gram Stain - Final 08/25/18 20:22 Wound - Finger Wound Culture - Preliminary Staphylococcus coag negative 08/25/18 20:20 Wound - Finger Gram Stain - Final 08/25/18 20:20 Wound - Finger Wound Culture - Preliminary Staphylococcus coag negative 08/25/18 20:22 Wound - Finger Acid Fast Bacilli Smear - Final No acid fast bacilli seen 08/25/18 20:22 Wound - Finger Mycobacterial Culture - Pending 08/25/18 20:20 Wound - Finger Acid Fast Bacilli Smear - Final No acid fast bacilli seen 08/25/18 20:20 Wound - Finger Mycobacterial Culture - Pending 08/25/18 20:20 Wound - Finger Fungal Smear - Final No fungal elements seen 08/25/18 20:20 Wound - Finger Fungal Culture - Pending 08/25/18 20:22 Wound - Finger Fungal Smear - Final No fungal elements seen 08/25/18 20:22 Wound - Finger Fungal Culture - Pending Lab - Hematology Results 08/28/18 04:10 WBC 5.1 RBC 4.03 L Hgb 12.6 L Hct 37.3 L MCV 92.7 MCH 31.3 MCHC 33.8 RDW 13.2 Plt Count 220 MPV 7.5 Neut % (Auto) 44.4 Lymph % (Auto) 41.0 [place] % (Auto) 9.1 H Eos % (Auto) 5.1 H Baso % (Auto) 0.4 Neut # (Auto) 2.3 Lymph # (Auto) 2.1 [place] # (Auto) 0.5 Eos # (Auto) 0.3 Baso # (Auto) 0.0 WBC Differential . Differential Comment Auto diff final Lab - Chemistry Results 08/27/18 08/28/18 15:24 04:10 Sodium 144 143 Potassium 3.6 D 4.0 Chloride 110 H 111 H Carbon Dioxide 27.5 25.3 Anion Gap 7 7 BUN 20 H 17 Creatinine 0.89 0.80 Estimated GFR 82 L Greater than 89 Random Glucose 100 88 Calcium 8.0 L 8.4 L Imaging: ITS Impressions Chest X-Ray 08/25/18 00:00 CONCLUSION: Minimal basilar atelectasis. No infiltrate or effusion. Finger X-Ray 08/25/18 17:42 CONCLUSION: Small linear radiopaque foreign body or calcification the soft tissues adjacent to the distal phalanx measuring about 3 mm in diameter. There is soft tissue swelling of the index finger. No bony destructive change. Physical Exam: GENERAL: awake and alert, not in respiratory distress. SKIN: Cool and dry. No generalized rash. Has brownish pigmentation in his UE. EYES: [place] conjunctiva. No petechia or hemorrhage. No scleral icterus. No injection or drainage. EARS, NOSE AND THROAT: Nose without bleeding or purulent nasal discharge. No sinus tenderness. Mucous membranes pink and moist. No oral lesions noted. No exudate. No oral thrush. NECK: Trachea midline. Supple and not tender, no meningeal signs CARDIOVASCULAR: Regular rate and rhythm. No murmurs, rubs or gallops heard RESPIRATORY: Clear to auscultation. Breath sounds equal bilaterally. No rales , wheezing or rhonchi ABDOMEN: Soft, non-tender, nondistended. Bowel sounds present and normoactive. No guarding. No rebound. No organomegaly. EXTREMITIES: No clubbing, cyanosis, or edema. LIF - has small amount purulence below the nail, mild swelling of LIF, almost no erythema noted, still with mild flexion at DIP. No lymphangitis seen in proximal hand and the rest of his LUE NEUROLOGICAL: Non-focal. PSYCHIATRIC: Normal affect, calm and cooperative. LINE: No evidence of infection Assessment and Plan - Plan Impression LIF infection with septic DIP, from cat bite - C/S Coag Neg Staph - did not improve with Augmentin Recommendation Change Unasyn to Levaquin IV vanco D/W Dr Devlin - ok with PICC - plan 3 weeks total Vanco, plus po Levaquin PICC Explained plan to the patient Follow C/S Explained plan to the patient D/W Dr Cohen
[2018-08-29] MEDS: Vancomycin Inj 1,500 MG in Sodium Chlor 0.9% Inj 500 ML IV.SIG SCH (12:32)
[2018-08-29] MEDS: levoFLOXacin 750 MG Tablet PO SCH (12:33)
[2018-08-29] MEDS ORDERED: Heparin Central Flush 100 UNIT/ML 5 ML Vial IV.FLUSH PRN ×2 (15:03→15:07)
[2018-08-29 20:16] VITALS: O2SAT 97
[2018-08-30 04:47] LABS: Glomerular Filtration Rate Greater Than 89 mL/min (>89)
[2018-08-30] MEDS: Vancomycin Inj 1,500 MG in Sodium Chlor 0.9% Inj 500 ML IV.SIG SCH (05:00)
--- NOTE | 2018-08-30 08:55 | P.PNIM ---
Subjective Interval history: No new complaints. Pain controlled Afebrile. Physical Exam Vital signs: Last Vital Signs Temp 97.7 F 08/30/18 07:59 Pulse 66 08/30/18 07:59 Resp 16 08/30/18 07:59 BP 126/67 08/30/18 07:59 Pulse Ox 97 08/30/18 07:59 Narrative: GENERAL: This is a well-nourished, well-developed patient, in no apparent distress. CARDIOVASCULAR: Regular rate and rhythm without murmurs, gallops, or rubs. RESPIRATORY: Clear to auscultation. Breath sounds equal bilaterally. No wheezes , rales, or rhonchi. GASTROINTESTINAL: Abdomen soft, non-tender, nondistended. Normal active bowel sounds MUSCULOSKELETAL: left hand bandaged dry and intact NEURO: Alert & Oriented x4 to person, place, time, situation. Moves all ext x4 Results Labs CBC & Chem 7: 08/28/18 04:10 08/30/18 04:10 Assessment and Plan Assessment (1) Infected puncture wound of left index finger: Code(s): S61.231A - Puncture wound without foreign body of left index finger without damage to nail, initial encounter; L08.9 - Local infection of the skin and subcutaneous tissue, unspecified Status: Acute (2) Cat bite of finger: Code(s): S61.259A - Open bite of unspecified finger without damage to nail, initial encounter; W55.01XA - Bitten by cat, initial encounter Status: Acute (3) Septic arthritis of interphalangeal joint of finger of left hand: Code(s): M00.9 - Pyogenic arthritis, unspecified Status: Acute Plan This is a 83-year-old male who presents today to be seen by the hand surgeon insulation blower. Patient was seen on 08/20/18 after being bitten by a cat. He was started on antibiotics. He is been seen 3 times since then. He was told to follow-up with the hand surgeon however has been unable to get into be seen. Apparently his primary care physician called Dr. Devlin who is on hand call. He instructed him to be sent to the ER to be seen by Dr. Devlin. The patient denies any fevers, chills. He reports pain and redness and swelling to the distal left index finger. He has been taking his Augmentin however reports that it is still draining purulent fluid. Pt examined in the ER with Dr. Devlin (08/25/18). Pt taken to the OR by Claus (08/25/18) for emergent incision and drainage left index finger arthrotomy, wash, debridement distal interphalangeal joint left index finger. Pt dx with septic arthritis of the DIP joint of left 2nd digit. Cultures sent to lab. 1) Septic Arthritis DIP joint of left 2nd digit - intraoperative cultures from left DIP joint --> gram positive cocci - ID also following - Unasyn (08/25 - 08/29/18) - Abx changed to IV Vancomycin and po Levaquin and ID recommended total of 3 weeks of Abx - [place] prn pain - Dressing change orders per Hand Surgery - supportive care - Anticipate d/c home later today once final Abx arranged. 2) BPH - continue Avodart 3) RA - continue hydroxychloroquine 4) hyperlipidemia - Lipitor DVT prophylaxis with Lovenox Attending Attestation Patient examined. Assessment and plan formulated with April Narvaez PA-C. I agree with the above. septic finger/ DIP joint. s/p debridemnent coag neg staph 3 weeks iv vanco and levaquin planned picc placed. hand f/u for wound care. try to coordinate dc home today. Progress Note: Quality VTE Deep Vein Thrombosis/Pulmonary Embolism Present on Admission: No _ (1) Infected puncture wound of left index finger Qualifiers: Encounter type: subsequent encounter Qualified Code(s): S61.231D - Puncture wound without foreign body of left index finger without damage to nail, subsequent encounter; L08.9 - Local infection of the skin and subcutaneous tissue, unspecified
[2018-08-30] MEDS ORDERED: Heparin Central Flush 100 UNIT/ML 5 ML Vial IV.FLUSH SCH ×2 (09:00)
[2018-08-30] MEDS: Finasteride 5 MG Tablet PO SCH (09:35)
[2018-08-30] MEDS: Enoxaparin Inj 30 MG/0.3 ML Syringe SQ SCH (09:35)
[2018-08-30] MEDS: Hydroxychloroquine 200 MG Tablet PO SCH (09:35)
[2018-08-30] MEDS: levoFLOXacin 750 MG Tablet PO SCH (09:35)
--- NOTE | 2018-08-30 10:42 | P.DCO ---
Diagnosis (1) Infected puncture wound of left index finger: Status: Acute (2) Cat bite of finger: Status: Acute (3) Septic arthritis of interphalangeal joint of finger of left hand: Status: Acute Home Health Nursing Order: Wound care and dressing changes and IV medication administration Instructions: . Can change dressing daily with dry sterile gauze after cleaning with alchohol. Contact Dr Devlin with any wound care concerns. Case Management Consult Case Management Consult-Home Health: Yes I have seen patient Adrian Lozano on 08/30/18. My clinical findings support the need for the requested home health care services because: Infection with risk of complications and Injectable medication education/ administration I certify that my clinical findings support that this patient is homebound because: Post-op weakness _ (1) Infected puncture wound of left index finger Qualifiers: Encounter type: subsequent encounter Qualified Code(s): S61.231D - Puncture wound without foreign body of left index finger without damage to nail, subsequent encounter; L08.9 - Local infection of the skin and subcutaneous tissue, unspecified
[2018-08-30 12:03] VITALS: BP 123/64; PULSE 73; RESP 17; TEMP 98
--- NOTE | 2018-08-30 13:26 | P.DCO ---
Post Hospital Infusion Therapy - Infusion Therapy Location of Infusion Therapy: Home Health Care IV Infusion Order - Patient Information Patient Weight: 74.4 kg - Diagnosis (1) Septic arthritis of interphalangeal joint of finger of left hand Code(s): M00.9 - Pyogenic arthritis, unspecified - Administer Medication Ceftriaxone Dose: 2 grams IV Directions: q 24 hours Stop Treatment: 09/19/18 - Additional Information Venous Access: PICC Line Additional Instructions: [x] Peripheral flush and dressing changes per protocol [x] Implanted port and central class a lineman: * Implanted port: 10 ml Normal Saline followed by 5 ml Heparin 100 units/ml Heparin flush after each use and monthly to maintain. [] May leave port accessed during therapy. [] May leave peripheral site accessed for duration of therapy. [x] If patient has SOB or respiratory distress, check oxygen saturation. If less than 90% or clinical signs of respiratory distress, administer oxygen at 2 L/min. via nasal cannula and notify physician. [x] Anaphylaxis/Reaction orders: * Stop infusion. * Keep IV line open with saline flush. * Notify physician. * Monitor vital signs every 15 minutes until symptoms resolve. * Check Oxygen saturation; Oxygen at 2 L/min. via nasal cannula if less than 90% or clinical signs of respiratory distress. * Administer diphenhydramine (Benadryl) 25 mg IV STAT, (unless patient has received as pre-med). May repeat once, if necessary. * Solu-Cortef 250 mg IVP over 30-60 seconds, use 100 mg vials for each dissolution. * Epinephrine (1mg/1 ml) 0.3 mg subcutaneously or IVP now with any signs of respiratory distress. * Check with physician for new additional pre-med orders if patient is re- challenged or re-treated. [x] May remove PICC line when treatment complete. [x] If the patient is admitted to the hospital, the ED, or transferred via [facility] , complete transfer form including medication reconciliation order sheet. Weekly Labs: CBC w/diff, Creatinine, LFTs (Hepatic Function Test) (Labs every Tuesday =- copy to nm) - Case Management Consult Case Management Consult-IVF: Yes (IV Abx) - Patient Information Allergies No Known Allergies Allergy (Verified 08/23/18 10:28)
--- NOTE | 2018-08-30 13:29 | P.PNID ---
Subjective Remarks: Patient is an 83-year-old male, lives alone at home with his cath, sustained a cat bite on his left index finger on August 19. He developed pain and swelling and went to the emergency room on August 20. He was given Augmentin. He went back to the emergency room August 21 because it was getting worse and he was discharged again. On August 23 he went back, and was told to complete his antibiotics. He returned to the hospital in August for worsening pain redness and swelling. Patient was seen by hand surgery, and was taken to surgery. He had evidence of infection going all the way to the DIP joint in the left index finger. He has not had any fever chills or sweats. He has not had any other complaint as far as respiratory, GI, or urinary complaints. Cultures currently is growing gram-positive cocci. He is currently on Unasyn. Infectious disease consultation has been requested to assist with evaluation and treatment. Notes reviewed Temps ok Pain better C/S from surgery (2 specimens) - Staph capitis, not oxacillin resistant Antibiotics: Unasyn Vanco x 1 Past Medical History: Unremarkable Allergies/Adverse Reactions: Allergies No Known Allergies Allergy (Verified 08/23/18 10:28) Objective Vital Signs 08/29/18 15:58 08/29/18 20:00 08/29/18 23:47 Temperature 97.8 F 98.1 F 98.1 F Pulse Rate 78 71 66 Respiratory Rate 17 19 19 Blood Pressure 126/90 136/65 150/68 H Pulse Oximetry 98 97 97 08/30/18 07:59 08/30/18 12:00 Temperature 97.7 F 98.0 F Pulse Rate 66 73 Respiratory Rate 16 17 Blood Pressure 126/67 123/64 Pulse Oximetry 97 97 Intake & Output 08/29/18 08/30/18 08/30/18 18:59 06:59 18:59 Intake Total 2295 / 2295 865 / 865 Balance 2295 / 2295 865 / 865 Weight 74.4 kg Intake: IV 615 / 615 515 / 515 Unasyn Inj 3 GM In NS Inj 100 100 / 100 ML @ 200 mls/hr IV.SIG Q6H ASHLEY Rx#:[id number] Vancomycin Inj 1,500 MG In NS 515 / 515 515 / 515 Inj 500 ML @ 250 mls/hr IV.SIG Q18H ASHLEY Rx#:[id number] Oral 1680 / 1680 350 / 350 Other: # Voids 3 Date of Last Bowel Movement 08/28/18 08/29/18 # Bowel Movements 1 08/25/18 20:22 Wound - Finger Gram Stain - Final 08/25/18 20:22 Wound - Finger Wound Culture - Final Staphylococcus capitis-capitis 08/25/18 20:20 Wound - Finger Gram Stain - Final 08/25/18 20:20 Wound - Finger Wound Culture - Final Staphylococcus capitis-capitis 08/25/18 20:22 Wound - Finger Acid Fast Bacilli Smear - Final No acid fast bacilli seen 08/25/18 20:22 Wound - Finger Mycobacterial Culture - Pending 08/25/18 20:20 Wound - Finger Acid Fast Bacilli Smear - Final No acid fast bacilli seen 08/25/18 20:20 Wound - Finger Mycobacterial Culture - Pending 08/25/18 20:20 Wound - Finger Fungal Smear - Final No fungal elements seen 08/25/18 20:20 Wound - Finger Fungal Culture - Pending Lab - Chemistry Results 08/30/18 04:10 Creatinine 0.78 Estimated GFR Greater than 89 Imaging: ITS Impressions Chest X-Ray 08/25/18 00:00 CONCLUSION: Minimal basilar atelectasis. No infiltrate or effusion. Finger X-Ray 08/25/18 17:42 CONCLUSION: Small linear radiopaque foreign body or calcification the soft tissues adjacent to the distal phalanx measuring about 3 mm in diameter. There is soft tissue swelling of the index finger. No bony destructive change. Physical Exam: GENERAL: awake and alert, not in respiratory distress. SKIN: Cool and dry. No generalized rash. Has brownish pigmentation in his UE. EYES: [place] conjunctiva. No petechia or hemorrhage. No scleral icterus. No injection or drainage. EARS, NOSE AND THROAT: Mucous membranes pink and moist. No oral lesions noted. No exudate. No oral thrush. NECK: Trachea midline. Supple and not tender, no meningeal signs CARDIOVASCULAR: Regular rate and rhythm. No murmurs, rubs or gallops heard RESPIRATORY: Clear to auscultation. Breath sounds equal bilaterally. No rales , wheezing or rhonchi ABDOMEN: Soft, non-tender, nondistended. Bowel sounds present and normoactive. No guarding. No rebound. No organomegaly. EXTREMITIES: No clubbing, cyanosis, or edema. LIF - has dry dressing . No lymphangitis seen in proximal hand and the rest of his LUE NEUROLOGICAL: Non-focal. PSYCHIATRIC: Normal affect, calm and cooperative. LINE: No evidence of infection Assessment and Plan (1) Septic arthritis of interphalangeal joint of finger of left hand Status: Acute Code(s): M00.9 - Pyogenic arthritis, unspecified - Plan Impression LIF infection with septic DIP, from cat bite - C/S Coag Neg Staph - did not improve with Augmentin Recommendation Since it is not Oxacillin resistant, will use IV Rocephin to complete his Rx Abx infusion form filled out D/C Moon and Alexandre OK to D/C once arrangements made for his IV Abx Explained plan to the patient Will D/W CM
--- NOTE | 2018-08-30 14:41 | P.DS ---
DS: Providers Date of admission: 08/25/18 18:01 Primary care physician: Bill Higginbotham Consults: 08/27/18 11:42 Consult to Infectious Diseases Routine Consulting Provider: Benita Colindres Reason for Consultation: septic arthritis from cat bite Notified:: Service Spoke with:: WARREN Date Notified:: 08/27/18 Time Notified:: 11:54 Ordering Provider: ABILIO 08/30/18 12:37 HUB Only Consult Order Routine Consulting Provider: [facility] Brief History from admission: This is a 83-year-old male who presents today to be seen by the hand surgeon instrumentation and controls technician. Patient was seen on 08/20/18 after being bitten by a cat. He was started on antibiotics. He is been seen 3 times since then. He was told to follow-up with the hand surgeon however has been unable to get into be seen. Apparently his primary care physician called Dr. devlin who is on hand call. He instructed him to be sent to the ER to be seen by Dr. devlin. The patient denies any fevers, chills. He reports pain and redness and swelling to the distal left index finger. He has been taking his Augmentin however reports that it is still draining purulent fluid. Pt examined in the ER together with Dr. Devlin (08/25/18). Pt taken to the OR by Claus (08/25/18) for emergent incision and drainage left index finger arthrotomy, wash, debridement distal interphalangeal joint left index finger. Pt dx with septic arthritis of the DIP joint of left 2nd digit. Cultures sent to lab. PMH: - hyperlipidemia - BPH - RA - paroxysmal SVT - malignant melanoma, RLE PSH: - right ankle arthroscopy - cataract surgery - cholecystectomy FHX: noncontribuory SHX: - - current smoker, no etoh, no illicit drugs All: NKDA DS: Diagnosis Discharge Diagnosis (1) Infected puncture wound of left index finger: Status: Acute (2) Cat bite of finger: Status: Acute (3) Septic arthritis of interphalangeal joint of finger of left hand: Status: Acute DS: Summary 1) Septic Arthritis DIP joint of left 2nd digit This is a 83-year-old male who presents today to be seen by the hand surgeon instrumentation and controls technician. Patient was seen on 08/20/18 after being bitten by a cat. He was started on antibiotics. He is been seen 3 times since then. He was told to follow-up with the hand surgeon however has been unable to get into be seen. Apparently his primary care physician called Dr. Devlin who is on hand call. He instructed him to be sent to the ER to be seen by Dr. Devlin. The patient denies any fevers, chills. He reports pain and redness and swelling to the distal left index finger. He has been taking his Augmentin however reports that it is still draining purulent fluid. Pt examined in the ER with Dr. Devlin (08/25/18). Pt was taken to the OR by Claus (08/25/18) for emergent incision and drainage left index finger arthrotomy, wash, debridement distal interphalangeal joint left index finger. Pt dx with septic arthritis of the DIP joint of left 2nd digit. Intraoperative cultures from left DIP joint grew out Staph capitis-capitis. ID was consulted during admission. Pt was initially on Unasyn (08/25 - 08/29/18). Abx changed to IV Vancomycin and po Levaquin but once final culture grew out on 08/30/18 final antibiotic recs were decided on Rocephin IV x 3 weeks. Dressing change ordered for sterile dry dressing changes daily after the wound is cleaned with alcohol per discussion with Dr. Devlin on 08/30/18. Pt is to followup with Dr. Devlin in 3 days or sooner if available, call for that appt. Pt is to followup with his PCP, Dr. Velazquez, in 5-7 days, call for that appt. [facility] is being arranged to help with dressing changes and Abx administration. 2) BPH - continue Avodart 3) RA - continue hydroxychloroquine 4) hyperlipidemia - Lipitor Time Spent with Patient Total time spent providing and/or coordinating discharge services: Quality: VTE Deep Vein Thrombosis/Pulmonary Embolism Present on Admission: No Results Completed studies during hospitalization: Pending at discharge 08/25/18 07:36 Surgical [PTH] Routine Labs on day of discharge: Labs from last 24 hours 08/30/18 04:10 Creatinine 0.78 Estimated GFR Greater than 89 Impressions ITS Impressions Chest X-Ray 08/25/18 00:00 CONCLUSION: Minimal basilar atelectasis. No infiltrate or effusion. Finger X-Ray 08/25/18 17:42 CONCLUSION: Small linear radiopaque foreign body or calcification the soft tissues adjacent to the distal phalanx measuring about 3 mm in diameter. There is soft tissue swelling of the index finger. No bony destructive change. Discharge Plan Discharge Disposition Patient Disposition: Disch W/Home Health Service Discharge Condition Condition: Stable Discharge Order Discharge Orders: Discharge Order (Routine); Ordered 08/30/18 Ordered By: Rubio Cohen Discharge Details Anticipated Discharge Date: 08/30/18 Discharge Comment: Pt is to followup with Dr. Devlin in 3 days or sooner if available, call for that appt. Pt is to followup with his PCP, Dr. Velazquez, in 5-7 days, call for that appt. Physicians Team ED Provider: Harpreet Salgado Primary Care Provider: Bill Higginbotham Attending Provider: Sean Renteria Other Providers: Benita Colindres ; [facility] Rxs /Orders / Referrals /Forms Prescriptions: Continue atorvastatin 20 mg Tablet 20 mg PO HS RF: 0 methylprednisolone 4 mg Tablet 4 mg PO DAILY RF: 0 hydroxychloroquine 200 mg Tablet 200 mg PO DAILY RF: 0 dutasteride [Avodart] 0.5 mg Capsule 0.5 mg PO DAILY RF: 0 Referrals: Bill Higginbotham M.D. [Primary Care Provider] - See Instructions (f/u pcp 1 week. ) Micheal Devlin MD [Physician] - See Instructions (call office and f/u within 1 week for wound recheck.) Discharge Instructions Patient Printed Instructions: Incision and Drainage (DC) Status ED Status: Left Department
[2018-08-31] MEDS ORDERED: Pharmacy Ordered Lab Info OTHER ONE (17:45)
== END 2018-08-30 18:18 | disposition home health service (06) | DRG 513 ==
LOC: NEPC 14:04 → NEDA 18:01 → N07 19:40
PROVIDERS: ADMIT Hospitalist; ATTEND Hospitalist
DX: N40.0 Benign prostatic hyperplasia without lower urinary tract symptoms; M00.042 Staphylococcal arthritis, left hand; I47.1 Supraventricular tachycardia; L02.512 Cutaneous abscess of left hand; B95.7 Other staphylococcus as the cause of diseases classified elsewhere; W55.01XA Bitten by cat, initial encounter; S61.251A Open bite of left index finger without damage to nail, initial encounter; S61.231A Puncture wound without foreign body of left index finger without damage to nail, initial encounter; E78.5 Hyperlipidemia, unspecified
CPT/HCPCS: 36569; 71010; 71045; 73140; 76937; 80048; 82565; 85025; 86403; 87015; 87070; 87077; 87102; 87116; 87186; 87205; 87206; 88305; 93005; 97162; 99285; J0131; J0295; J0690; J0696; J1170; J1642; J1650; J3010; J3370; J7040; J7050